=== PATIENT | male | born 1980 | race Two or more races ===

== ENCOUNTER → 2024-09-23 | Outpatient (CLI) | payer MEDICAID, SELFPAY ==
--- NOTE | 2024-09-23 07:30 | XR_ITS ---
Examination: MRI lumbar spine without contrast Date and time of exam: September 23, 2024 at 0728 hours INDICATIONS: Lower back pain radiating down the left leg numbness in the left side 6 months Technique: Multiple MRI axial and sagittal sections lumbar spine. Sagittal T2-weighted images, TR 3500, TE 118 T1 weighted transverse sections, TR 688 T8.5, T2-weighted sagittal sections T1 weighted sagittal sections TR 621, TE 30 T2 axial sections, TR 4, 190, TE 84. Findings: Multiple lymph nodes L3-L4 No lumbar acute fracture Advanced disc narrowing L5-S1 No spondylolisthesis L5-S1 4 mm central left paracentral disc bulge contiguous with the left S1 nerve root L4-L5 9 mm extruded central left paracentral disc severely indenting the ventral margin thecal sac displacing the right and left L5 nerve roots L3-L4 no disc protrusion L2-L3 no disc protrusion L1-L2 no disc protrusion IMPRESSION: L5-S1 4 mm central left paracentral disc bulge L4-L5 large, 9 mm, extruded central left paracentral disc
== END | disposition home or self-care (01) ==
PROVIDERS: PCP Nurse Practitioner Family; Referring Provider Nurse Practitioner Family; Visit Provider Nurse Practitioner Family
DX: M51.379 Other intervertebral disc degeneration, lumbosacral region without mention of lumbar back pain or lower extremity pain (principal); M51.26 Other intervertebral disc displacement, lumbar region
CPT/HCPCS: 72148